=== PATIENT | male | born 1980 | race Caucasian/White ===

== ENCOUNTER 2022-04-23 03:21 | Emergency (ER) | payer OTHER, SELFPAY ==
--- OUTSIDE RECORDS SUMMARY | 2022-04-23 03:31 | XMS REPORT | Continuity of Care Document ---
:1980 Author Organization [facility] t Address [address] [place] [address] Care Team Providers Name Role Phone Asked, No Pcp Primary Care Physician Unavailable SHIRIN UMAÑA Attending Clinician Unavailable Problems This patient has no known problems. Allergies, Adverse Reactions, Alerts This patient has no known allergies or adverse reactions. Social History Social Habit Start Date Stop Date Quantity Comments Source History of Chews Tobacco [facility] use Hospital Tobacco use and 2020-04-18 2020-04-18 User of smokeless [facility] exposure 00:00:00 00:00:00 tobacco Hospital Alcohol intake 2020-04-18 2020-04-18 Ex-drinker [facility] 00:00:00 00:00:00 (finding) Hospital Sex Assigned At [birth year] [facility] 00:00:00 00:00:00 Hospital Smoking Status Start Date Stop Date Source Never smoked tobacco [facility] Medications Ordered Filled Start Stop Current Ordering Indication Dosage Frequency Signature Comments Components Source Medication Medication Date Date Medication? Clinician (SIG) Name Name ibuprofen Yes 600mg Q6H Take 1 Metho di (ADVIL) 600 2-[address] MG tablet 00:00: (600 mg Hospi ta 00 total) by l mouth every 6 (six) hours as needed for mild pain for up to 30 doses. Procedures This patient has no known procedures. Plan of Care Planned Activity Planned Date Details Comments Source Future Scheduled 2022-02-19 [facility]ZA VACCINE [facility] 18:09:08 [code = INFLUENZA VACCINE] Future Scheduled 2022-02-19 COVID-19 VACCINE [facility] 18:09:08 (#1) [code = COVID-19 VACCINE (#1)] Future Scheduled 2022-02-19 Hepatitis C [facility] Test 18:09:08 screening (procedure) [code = 790866516] Encounters Start End Encounter Admission Attending Care Care Encounter Source Date/Time Date/Time Type Type Clinicians Facility Department ID 2020-04-18 2020-04-19 Emergency [facility] [id number] [place] 00:00:00 00:00:00 SHIRIN [address] Results This patient has no known results.
[2022-04-23 04:43] LABS: SARS-COV-2 RT PCR POSITIVE (NEGATIVE)
--- NOTE | 2022-04-23 04:50 | ER ---
Nurse's Notes [facility] Name: Yovani Marie Age: 41 yrs Sex: Male : 1980 Arrival Date: 04/23/2022 Time: 03:26 Bed 19 Private MD: Diagnosis: Acute upper respiratory infection, unspecified Presentation: 04/23 03:30 Chief complaint: Patient states: "I had not been able to sleep well because I have been tw5 waking up with chills. My congestion and sinus have been messing with me.". Coronavirus screen: Vaccine status: Patient reports being unvaccinated. Ebola Screen: Patient negative for fever greater than or equal to 101.5 degrees Fahrenheit, and additional compatible Ebola Virus Disease symptoms Patient denies exposure to infectious person. Patient denies travel to an Ebola-affected area in the 21 days before illness onset. Initial Sepsis Screen: Does the patient meet any 2 criteria? No. Patient's initial sepsis screen is negative. Does the patient have a suspected source of infection? No. Patient's initial sepsis screen is negative. Risk Assessment: Do you want to hurt yourself or someone else? Patient reports no desire to harm self or others. Onset of symptoms was April 21, 2022 at 08:00. 03:30 Method Of Arrival: Ambulatory tw5 03:30 Acuity: JOHNNY 4 tw5 Triage Assessment: 03:32 General: Appears in no apparent distress. Behavior is calm, cooperative, appropriate tw5 for age. Pain: Denies pain. Historical: - Allergies: 03:32 PENICILLINS; tw5 - Home Meds: 03:32 None [Active]; tw5 - PMHx: 03:32 None; tw5 - PSHx: 03:32 None; tw5 - Immunization history:: Flu vaccine is not up to date. - Social history:: Smoking status: Patient reports use of chewing tobacco. Screenin:52 [facility] ED Fall Risk Assessment (Adult) History of falling in the last 3 months, vc1 including since admission No falls in past 3 months (0 pts) Confusion or Disorientation No (0 pts) Intoxicated or Sedated No (0 pts) Impaired Gait No (0 pts) Mobility Assist Device Used No (0 pt) Altered Elimination No (0 pt) Score/Fall Risk Level 0 - 2 = Low Risk Oriented to surroundings, Maintained a safe environment, Educated pt \\T\\ family on fall prevention, incl call for assistance when getting out of bed. Abuse screen: Denies threats or abuse. Nutritional screening: No deficits noted. Tuberculosis screening: No symptoms or risk factors identified. Vital Signs: 03:30 BP 133 / 85; Pulse 75; Resp 18; Temp 97.8; Pulse Ox 98% on R/A; Weight 113.4 kg; Height tw5 6 ft. 2 in. (187.96 cm); Pain 0/10; 03:30 Body Mass Index 32.10 (113.40 kg, 187.96 cm) tw5 ED Course: 03:26 Patient arrived in ED. jj6 03:32 Claudia Lopez MD is Attending Physician. sd2 03:32 Triage completed. tw5 03:32 Arm band placed on. tw5 04:17 Jessica Hadley RN is Primary Nurse. vc1 04:17 Strep Sent. vc1 04:17 COVID-19/FLU A+B Sent. vc1 04:53 Patient has correct armband on for positive identification. Bed in low position. Call vc1 light in reach. 04:53 No provider procedures requiring assistance completed. Patient did not have IV access vc1 during this emergency room visit. Administered Medications: No medications were administered Medication: 04:53 VIS not applicable for this client. vc1 Outcome: 04:49 Discharge ordered by . la1 04:57 Discharged to home ambulatory. vc1 04:57 Condition: good 04:57 Discharge instructions given to patient, Instructed on discharge instructions, follow up and referral plans. Demonstrated understanding of instructions, follow-up care. 04:57 Patient left the ED. vc1 Signatures: Nicolas Merritt, BACK UP MACHINE OPERATOR-C BACK UP MACHINE OPERATOR-Cla1 Mercedes Sandoval tw5 Lillie Thorne jj6 Jessica Hadley, RN RN vc1 Claudia Lopez MD MD sd2 Corrections: (The following items were deleted from the chart) 03:33 03:32 Allergies: No Known Allergies; tw5 tw5
--- NOTE | 2022-04-23 04:50 | EDPHYS ---
Physician Documentation [facility] Name: Yovani Marie Age: 41 yrs Sex: Male : 1980 Arrival Date: 04/23/2022 Time: 03:26 Bed 19 Private MD: ED Physician Claudia Lopez HPI: 04/23 03:59 This 41 yrs old Male presents to ER via Ambulatory with complaints of Runny Nose, sd2 Congestion, Fever, Sore Throat. 03:59 41 yo M presents with CC of subjective fever, chills, runny nose, congestion and sore sd2 throat. Reports difficulty sleeping tonight due to the chills but has improved after taking 3 Ibuprofen pills. Has not taken any other medications for symptoms. . Historical: - Allergies: 03:32 PENICILLINS; tw5 - Home Meds: 03:32 None [Active]; tw5 - PMHx: 03:32 None; tw5 - PSHx: 03:32 None; tw5 - Immunization history:: Flu vaccine is not up to date. - Social history:: Smoking status: Patient reports use of chewing tobacco. ROS: 03:59 Constitutional: Negative for fever, chills, and weight loss, Eyes: Negative for injury, sd2 pain, redness, and discharge, ENT: Negative for injury, pain, and discharge, Cardiovascular: Negative for chest pain, palpitations, and edema, Respiratory: Negative for shortness of breath, cough, wheezing. Abdomen/GI: Negative for abdominal pain, nausea, vomiting, diarrhea. MS/Extremity: Negative for injury and deformity, Skin: Negative for injury, rash, and discoloration, Neuro: Negative for headache, numbness and tingling. Exam: 03:59 Constitutional: This is a well developed, well nourished patient who is awake, alert, sd2 and in no acute distress. Head/Face: Normocephalic, atraumatic. Eyes: EOMI, normal conjunctiva bilaterally ENT: Nares patent. No nasal discharge, no septal abnormalities noted. Oropharynx with no redness, swelling, or masses, exudates, or evidence of obstruction, uvula midline. Mucous membranes moist. Chest/axilla: Normal chest wall appearance and motion. Nontender with no deformity. Cardiovascular: Regular rate and rhythm with a normal S1 and S2. No gallops, murmurs, or rubs. 2+ distal pulses. Respiratory: Lungs have equal breath sounds bilaterally, clear to auscultation and percussion. No rales, rhonchi or wheezes noted. No increased work of breathing, no retractions or nasal flaring. Abdomen/GI: Soft, non-tender, with normal bowel sounds. No guarding or rebound. No evidence of tenderness throughout. Skin: Warm, dry with normal turgor. Normal color with no rashes, no lesions, and no evidence of cellulitis. MS/ Extremity: Pulses equal, no cyanosis. Neurovascular intact. Full, normal range of motion. Ambulatory without difficulty. Psych: Awake, alert, with orientation to person, place and time. Behavior, mood, and affect are within normal limits. Vital Signs: 03:30 BP 133 / 85; Pulse 75; Resp 18; Temp 97.8; Pulse Ox 98% on R/A; Weight 113.4 kg; Height tw5 6 ft. 2 in. (187.96 cm); Pain 0/10; 03:30 Body Mass Index 32.10 (113.40 kg, 187.96 cm) tw5 MDM: 03:41 Patient medically screened. sd2 03:59 Differential Diagnosis: Other Differential diagnosis includes but is not limited to: sd2 Viral URI, acute otitis media, acute otitis externa, pneumonia, UTI, COVID, flu, herpangina among others. Data reviewed: vital signs, nurses notes. I considered the following discharge prescriptions or medication management in the emergency department Pt declined to receive any pain medications in the ER today. . Counseling: I had a detailed discussion with the patient and/or guardian regarding: the historical points, exam findings, and any diagnostic results supporting the discharge/admit diagnosis, lab results, the need for outpatient follow up, to return to the emergency department if symptoms worsen or persist or if there are any questions or concerns that arise at home. 04/23 03:33 Order name: COVID-19/FLU A+B sd2 04/23 03:33 Order name: Strep sd2 04/23 04:43 Order name: COVID-19/FLU A+B; Complete Time: 04:44 EDMS 04/23 04:47 Order name: Group A Streptococcus Rapid Sc EDMS Administered Medications: No medications were administered Disposition Summary: 04/23/22 04:49 Discharge Ordered Location: Home la1 Problem: new la1 Symptoms: have improved la1 Condition: Stable la1 Diagnosis - Acute upper respiratory infection, unspecified la1 Followup: la1 - With: Private Physician - When: 1 week - Reason: Recheck today's complaints, Re-evaluation by your physician Followup: la1 - With: Emergency Department - When: As needed - Reason: Trouble breathing, Worsening of condition Discharge Instructions: - COVID-19 la1 - COVID-19 Frequently Asked Questions la1 - Discharge Summary Sheet sd2 - Upper Respiratory Infection, Adult sd2 Forms: - Medication Reconciliation Form la1 - Thank You Letter la1 Signatures: Dispatcher [employer] EDMS Nicolas Merritt, STOCK PREPARATION SUPERVISOR-C STOCK PREPARATION SUPERVISOR-Mercedes Albrecht tw5 Claudia Lopez MD MD sd2 Corrections: (The following items were deleted from the chart) 03:33 03:32 Allergies: No Known Allergies; tw5 tw5
[2022-04-23 05:07] VITALS: BP 133/85; TEMP 97.8; O2SAT 98
== END 2022-04-23 04:57 | disposition home or self-care (01) ==
LOC: ER 03:21
DX: U07.1 COVID-19 (principal); J06.9 Acute upper respiratory infection, unspecified; F17.220 Nicotine dependence, chewing tobacco, uncomplicated
CPT/HCPCS: 87070; 87081; 0240U; 99283